=== PATIENT | male | born 1990 | race Asian ===

== ENCOUNTER 2018-08-17 11:15 | Emergency (ER) | payer OTHER ==
[~2018-08-17] VITALS: Ht 177.8 cm; Wt 93.9 kg
[2018-08-17 11:21] VITALS: Ht 177.8 cm; Wt 93.9 kg
[2018-08-17 13:20] VITALS: BP 118/56
== END 2018-08-17 13:20 | disposition home or self-care (01) ==
LOC: ED 11:15
DX: S63.054A Dislocation of other carpometacarpal joint of right hand, initial encounter (principal); W22.8XXA Striking against or struck by other objects, initial encounter; Y93.89 Activity, other specified; Y92.89 Other specified places as the place of occurrence of the external cause; Y99.8 Other external cause status
CPT/HCPCS: G0500; J3010; J3490; J7030; Q0092